=== PATIENT | female | born 1965 | race African-American/Black ===

== ENCOUNTER 2024-04-26 12:44 | Emergency (ER) | payer OTHER ==
[~2024-04-26] VITALS: Ht 160 cm; Wt 71.6 kg
[2024-04-26 12:53] VITALS: O2SAT 100
[2024-04-26 14:56] LABS: BASOPHILS % 0.4 % (0.0-2.0); EOSINOPHILS % 2.7 % (0.0-5.0); HEMATOCRIT. 38.2 % (36.0-48.0); HEMOGLOBIN. 12.1 g/dL (12.0-16.0); LYMPHOCYTES % 37.5 % (20.0-50.0); MEAN CORPUSCULAR HGB CONC 31.7 g/dL (31.0-37.0); MEAN CORPUSCULAR VOLUME 85.1 fL (81.0-99.0); MONOCYTES % 6.2 % (2.0-8.0); NEUTROPHILS % 53.2 % (40.0-76.0); PLATELET 337 x1000/uL (130-400); RED BLOOD CELL COUNT 4.49 mill/uL (4.2-5.4); RED CELL DISTRIBUTION WIDTH 13.3 % (11.6-14.6); WHITE BLOOD COUNT 5.9 x1000/uL (4.5-11.0)
[2024-04-26 15:02] LABS: CHLORIDE 107 mEq/L (98-107); POTASSIUM 4.1 mEq/L (3.5-5.1); SODIUM 142 mEq/L (136-145)
[2024-04-26 15:03] LABS: CARBON DIOXIDE 27 mEq/L (21-32)
[2024-04-26 15:04] LABS: CALCIUM 9.9 mg/dL (8.7-10.4)
[2024-04-26 15:08] LABS: CREATININE 0.7 mg/dL (0.6-1.0)
[2024-04-26 15:09] LABS: GLUCOSE 93 mg/dL (70-105); UREA NITROGEN BLOOD 10 mg/dL (9-23)
[2024-04-26 15:32] LABS: TROPONIN I HIGH SENSITIVITY 5 ng/L (3.0-34)
[2024-04-26 15:38] LABS: PROTHROMBIN TIME 10.7 sec (9.6-11.0)
[2024-04-26 16:04] LABS: CLARITY URINE CLEAR (CLEAR); COLOR URINE YELLOW (YELLOW); GLUCOSE URINE NEGATIVE (NEGATIVE); KETONES URINE NEGATIVE (NEGATIVE); LEUKOCYTE ESTERASE URINE 3+ (NEGATIVE); NITRITE URINE NEGATIVE (NEGATIVE); OCCULT BLOOD URINE 1+ (NEGATIVE); PROTEIN URINE NEGATIVE (NEGATIVE); SPECIFIC GRAVITY URINE 1.011 (1.005-1.030); UROBILINOGEN URINE 0.2 E.U./dL (0.2-1.0)
[2024-04-26 16:36] LABS: BACTERIA URINE 1+; SQUAMOUS EPITHELIAL CELL URINE FEW /lpf (RARE/1+)
[2024-04-26] MEDS: ACETAMINOPHEN 325MG TABLET PO ONE (16:39)
[2024-04-26] MEDS: CYCLOBENZAPRINE 10MG TABLET PO ONE (16:39)
[2024-04-26] MEDS ORDERED: CEFP200T13 MT (17:21)
[2024-04-26] MEDS ORDERED: CYCL10TA21 MT (17:21)
[2024-04-26 17:42] VITALS: BP 168/98; PULSE 82; RESP 16; TEMP 36.7; O2SAT 100
== END 2024-04-26 17:43 | disposition home or self-care (01) ==
LOC: ER 12:44
DX: S06.0XAA Concussion with loss of consciousness status unknown, initial encounter (principal); M79.18 Myalgia, other site; Z90.710 Acquired absence of both cervix and uterus; Z88.2 Allergy status to sulfonamides; W01.0XXA Fall on same level from slipping, tripping and stumbling without subsequent striking against object, initial encounter; Y93.89 Activity, other specified; Y92.89 Other specified places as the place of occurrence of the external cause; Y99.8 Other external cause status
CPT/HCPCS: 36415; 71045; 72100; 73030; 73502; 80048; 81003; 84484; 85025; 93005; 99285